=== PATIENT | female | born 1945 | race Native Hawaiian/Other Pacific Islander ===

== ENCOUNTER 2019-12-07 11:15 | Outpatient (CLI) | payer OTHER ==
[~2019-12-07 11:15] MED LIST: AMIT25TA22 PO; DIAZ5TAB20 PO; GLUCOVANCE1 TA1 PO; NORCO 10/325***1 TAB PO; TRIBENZO4 PO
== END 2019-12-07 22:36 | disposition home or self-care (01) ==
LOC: CT 11:15
DX: K76.89 Other specified diseases of liver (principal); R93.2 Abnormal findings on diagnostic imaging of liver and biliary tract; R10.9 Unspecified abdominal pain
CPT/HCPCS: 36415; 82565; 84520; Q9963